=== PATIENT | female | born 1940 | race Hispanic/Latino ===

== ENCOUNTER 2017-06-01 18:28 | Emergency (ER) | payer OTHER ==
[~2017-06-01] VITALS: Ht 152.4 cm; Wt 81.2 kg
[~2017-06-01 18:28] MED LIST: AUGMENTIN 875-1 EACH PO; BACTROBAN15 GM TOP; ESCITALOPRAM OX10 MG PO; HYDROCHLOROTHIA25 M1 PO; PRAVASTATIN SOD20 M2 PO; TYLENOL WITH C1 EACH PO
--- NOTE | 2017-06-01 20:14 | ED GENERAL ADULT ---
History of Present Illness General Chief Complaint: General Adult Stated Complaint: R LEG SCRATCHES ?INFECTED Source: patient, family, old records Exam Limitations: no limitations Vital Signs & Intake/Output Vital Signs & Intake/Output Vital Signs Date Time Temp Pulse Resp B/P B/P Pulse O2 O2 Flow FiO2 Mean Ox Delivery Rate 06/014 98.3 68 18 160/70 96 Room Air ED Intake and Output 06/02 0000 06/01 1200 Intake Total Output Total Balance Patient 179 lb Weight Weight Reported by Patient Measurement Method Allergies Coded Allergies: No Known Allergies (05/16/17) Reconcile Medications Alendronate Sodium 70 MG TABLET 1 TAB PO QSUN OSTEOPOROSIS (Reported) in the morning, at least 30 minutes before the first food, beverage, or medication of the day Ascorbic Acid (Vitamin C) (Unknown Strength) CAPSULE (Unknown Dose) PO DAILY SUPPLEMENT (Reported) Aspirin (Ecotrin*) 81 MG TABLET.DR 1 TAB PO DAILY HEART/BLOOD (Reported) Cyanocobalamin (Vitamin B-12) (Unknown Strength) TABLET (Unknown Dose) PO DAILY SUPPLEMENT (Reported) Doxycycline Hyclate 100 MG TABLET 1 TAB PO BID cat bite Ergocalciferol (Vitamin D2) (Vitamin D2) 50,000 UNIT CAPSULE 1 CAP PO QTUES SUPPLEMENT (Reported) Escitalopram Oxalate 10 MG TABLET 1 TAB PO DAILY DEPRESSION (Reported) Etodolac (Etodolac ER) (Unknown Strength) TAB.ER.24H (Unknown Dose) PO AD PRN PAIN/INFLAMMATION (Reported) Hydrochlorothiazide 25 MG TABLET 1 TAB PO DAILY HEART (Reported) Metronidazole (Flagyl) 500 MG TABLET 1 TAB PO TID jaron bite Multiple Vitamin (Multivitamins) 1 EACH TABLET 1 TAB PO DAILY SUPPLEMENT ( Reported) Pravastatin Sodium 20 MG TABLET 1 TAB PO DAILY CHOLESTEROL (Reported) Triage Note: PT TO ED FOR RABIES VACC AND TO HAVE RLE LOOKED AT. PT IS S/P CAT SCRATCH TO RLE, SEEN FOR SAME 05/16. AFEBRILE. ON PO ABX BUT STILL C/O PAIN AND REDNESS TO SITE. PT KYRGYZ SPEAKING, DAUGHTER WITH PT. Triage Nurses Notes Reviewed? yes Onset: Abrupt Duration: day(s): (3), constant, continues in ED Timing: single episode today Injury Environment: home Severity: mild, moderate Severity Numbers: 4 No Modifying Factors: none LMP (ages 10-50): post menopausal : No Patient currently breastfeeds: No HPI: 76-year-old female past medical history of hypertension, hyperlipidemia present for evaluation of infected cat bite. Patient was seen here on May 16 for evaluation of a cat bite. She was bitten by her family pet. She was started on antibiotics Augmentin however it caused diarrhea and nausea since she did not take it as directed. She reports still having a large amount of antibiotic left. She reports that about 3 days ago she noted there was redness swelling and pain in the area of the Bite on the right lower extremity. No fevers no discharge. She also received the first rabies vaccine when she was here last time and never came back for the rest. Since the initial bite the family pet is been behaving normally. Patient is not a diabetic. (Gilbert Huang) Past History Travel History Traveled to [place] past 21 day No Medical History Any Pertinent Medical History? see below for history Cardiovascular: hypertension Tetanus Vaccine: 05/16/17 Surgical History Surgical History: non-contributory Psychosocial History What is your primary language Andorran Tobacco Use: Never used ETOH Use: denies use Illicit Drug Use: denies illicit drug use Family History Hx Contributory? No (Gilbert Huang) Review of Systems Review of Systems Constitutional: Reports: no symptoms. EENTM: Reports: no symptoms. Respiratory: Reports: no symptoms. Cardiovascular: Reports: no symptoms. GI: Reports: no symptoms. Genitourinary: Reports: no symptoms. Musculoskeletal: Reports: no symptoms. Skin: Reports: see HPI, erythema. Neurological/Psychological: Reports: no symptoms. Hematologic/Endocrine: Reports: no symptoms. Immunologic/Allergic: Reports: no symptoms. All Other Systems: Reviewed and Negative (Gilbert Huang) Physical Exam Physical Exam General Appearance: well developed/nourished, no apparent distress, alert, awake Head: atraumatic, normal appearance Eyes: Bilateral: normal appearance, PERRL, EOMI. Ears, Nose, Throat: hearing grossly normal Neck: normal inspection, supple, full range of motion Respiratory: normal breath sounds, chest non-tender, no respiratory distress, lungs clear Cardiovascular: regular rate/rhythm, normal peripheral pulses Peripheral Pulses: 2+ radial (R), 2+ radial (L) Gastrointestinal: soft, non-tender Back: normal inspection, normal range of motion Extremities: normal range of motion, right lower extremity there is a 1.5 cm horizontal linear laceration located on the lateral aspect of the lower leg. There is about 3 cm diameter area of surrounding erythema and swelling. There is tenderness palpation no focal fluctuant areas no discharge. Full range of motion of the Achilles is intact patient is able to walk and bear weight Neurologic/Psych: no motor/sensory deficits, awake, alert, oriented x 3, normal gait Skin: intact, normal color, warm/dry Lymphatic: no anterior cervical emerson Core Measures ACS in differential dx? No CVA/TIA Diagnosis: No Sepsis Present: No Sepsis Focused Exam Completed? No (Gilbert Huang) Progress Differential Diagnoses I considered the following diagnoses in my evaluation of the patient: [ Cellulitis, abscess, cat scratch, sepsis, DVT] Plan of Care: Current Medications Sig/Deandre Start time Last Medication Dose Stop Time Status Admin Ampicillin Sodium/ 3,000 MG ONCE ONE 06/01 2014 CAN Sulbactam Sodium 06/02 2043 (Unasyn) Sodium Chloride 100 ML (Normal Saline 0.9%) Patient seen and evaluated. She was seen here on May 16 for Bite. She was given a dose of Unasyn and prescribed Augmentin. She was not able to be compliant with the antibiotics because of side effects. She appears in area of cellulitis around the Bite. The area was cleaned with hydrogen peroxide. Augmentin will be discontinued patient will be started on Flagyl + doxy. She was given an IV dose of each here. She will then be discharged home on oral Doxy and Flagyl. A jaime was made around the area of erythema to track spread. Patient was not given the remaining rabies vaccine because she was bitten by her family pet the cat has been behaving normally for greater than 2 weeks now. Patient is afebrile she is diabetic she appears currently well. Advised her to return in 2 or 3 days for wound check. Discussed return precautions in detail case discussed with dr kimball he agrees. Initial ED EKG: none (Gilbert Huang) Departure Departure Disposition: HOME OR SELF CARE Condition: Stable Clinical Impression Primary Impression: Cellulitis Qualifiers: Site of cellulitis: extremity Site of cellulitis of extremity: lower extremity Laterality: right Qualified Code: L03.115 - Cellulitis of right lower limb Referrals: Lesly Mayer MD (PCP/Family) Additional Instructions: Take both antibiotics as directed for the full course. Keep the area clean and dry [place] for signs of spreading infection such as spreading redness worsening swelling worsening pain. Make a follow-up with her primary care doctor for recheck in a few days. Return with any concerns. Departure Forms: Customer Survey General Discharge Information Prescriptions: Current Visit Scripts Metronidazole (Flagyl) 1 TAB PO TID #30 TAB Doxycycline Hyclate 1 TAB PO BID #20 TAB (Gilbert Huang) PA/TAILOR FITTER Co-Sign Statement Statement: ED Attending supervision documentation- x I saw and evaluated the patient. I have also reviewed all the pertinent lab results and diagnostic results. I agree with the findings and the plan of care as documented in the PA's/TAILOR FITTER's documentation. [] I have reviewed the ED Record and agree with the PA's/TAILOR FITTER's documentation. [] Additions or exceptions (if any) to the PAs/TAILOR FITTER's note and plan are summarized below: [] (Carley MARTINEZ,Jasvir) Critical Care Note Critical Care Note Critical Care Time: non-applicable (Gilbert Huang)
[2017-06-01] MEDS ORDERED: VITAMIN D250000 UNIT PO (20:28)
[2017-06-01] MEDS ORDERED: ALENDRONATE SOD70 M2 PO (20:29)
[2017-06-01] MEDS ORDERED: ETODOLAC ER400 MG PO (20:29)
[2017-06-01] MEDS ORDERED: VITAMIN B-121000 MC3 PO (20:30)
[2017-06-01] MEDS ORDERED: ASPIRIN EC81 M1 PO (20:30)
[2017-06-01] MEDS ORDERED: VITAMIN C500 M9 PO (20:31)
[2017-06-01] MEDS ORDERED: MULTIVITAMINS1 EAC9 PO (20:31)
[2017-06-01] MEDS ORDERED: DOXYCYCLINE HY100 M4 PO (21:12)
[2017-06-01] MEDS ORDERED: FLAGYL500 MG PO (21:12)
[2017-06-01 22:24] VITALS: BP 160/70
== END 2017-06-01 23:18 ==
LOC: ERH 18:28
DX: L03.116 Cellulitis of left lower limb (principal)
CPT/HCPCS: 96374; 96375